=== PATIENT | female | born 1975 | race Caucasian/White ===

== ENCOUNTER 2017-10-31 09:34 | Inpatient (IN) | payer MEDICAID ==
[2017-10-31] MEDS: morphine 4 MG/ML VIAL IV ×3 (11:19→15:43)
[2017-10-31] MEDS: ONDANSETRON 4 MG INJ IV ×3 (11:19→22:26)
[2017-10-31 12:04] LABS: ADD MAN DIFF? NO
[2017-10-31 12:09] LABS: BASOPHIL # 0.1 10^3/ul (0.0-0.1); BASOPHILS % 0.4 % (0.0-2.0); EOSINOPHILS % 0.2 % (0.0-7.0); HEMATOCRIT 40.6 % (37.0-47.0); HEMOGLOBIN 13.6 g/dl (12.0-16.0); LYMPHOCYTES % 11.3 % (15.0-51.0); MEAN CORPUSCULAR HGB CONC 33.5 g/dl (32.0-37.0); MEAN CORPUSCULAR VOLUME 92.5 fl (82.0-101.0); MEAN PLATELET VOLUME 11.3 fl (7.4-10.4); MONOCYTE # 0.5 10^3/ul (0.3-0.9); MONOCYTES % 3.1 % (0.0-11.0); NEUTROPHIL # 14.8 10^3/ul (1.6-7.5); NEUTROPHILS % 84.5 % (39.0-77.0); PLATELET COUNT 247 10^3/UL (140-415); RED BLOOD COUNT 4.39 10^6/ul (4.20-5.40); RED CELL DISTRIBUTION WIDTH 12.9 % (11.5-14.5)
[2017-10-31 12:09] LABS: WHITE BLOOD COUNT 17.5 10^3/ul (4.8-10.8)
[2017-10-31 12:16] LABS: ADD UMIC NO; UR ASCORBIC ACID 40 mg/dL (NEGATIVE); UR BILIRUBIN (Dip) NEGATIVE (NEGATIVE); UR BLOOD (Dip) NEGATIVE (NEGATIVE); UR CLARITY CLEAR (CLEAR); UR COLOR YELLOW (YELLOW); UR GLUCOSE (Dip) NEGATIVE (NEGATIVE); UR KETONES (Dip) NEGATIVE (NEGATIVE); UR LEUKOCYTE ESTERASE (Dip) NEGATIVE Leu/ul (NEGATIVE); UR NITRITE (Dip) NEGATIVE (NEGATIVE); UR SPECIFIC GRAVITY (Dip) 1.024 (1.003-1.030); UR TOTAL PROTEIN (Dip) NEGATIVE (NEGATIVE); UR UROBILINOGEN (Dip) NEGATIVE (NEGATIVE)
[2017-10-31] MEDS: SOD CHLORIDE 0.9% 1,000 ML IV (12:34)
[2017-10-31] MEDS: PIPER-TAZO 3.375 GM IV (PMX) 100 ML IVPB ×2 (12:34→20:58)
[2017-10-31 12:35] LABS: ALANINE AMINOTRANSFERASE 80 IU/L (13-69); ALBUMIN 4.6 g/dl (3.3-4.9); ALBUMIN/GLOBULIN RATIO 1.21; ALKALINE PHOSPHATASE 98 IU/L (42-121); ANION GAP 17 (8-16); ASPARTATE AMINO TRANSFERASE 34 IU/L (15-46); BILIRUBIN,INDIRECT 0.3 mg/dl (0-1.1); BILIRUBIN,TOTAL 0.3 mg/dl (0.2-1.3); BLOOD UREA NITROGEN 14 mg/dl (7-20); CALCIUM 8.7 mg/dl (8.4-10.2); CARBON DIOXIDE 23 mmol/L (21-31); CHLORIDE 105 mmol/L (97-110); CREATININE 0.48 mg/dl (0.44-1.00); GLUCOSE 133 mg/dl (70-220); LIPASE 115 U/L (23-300); POTASSIUM 3.8 mmol/L (3.5-5.1); SODIUM 141 mmol/L (135-144); TOTAL PROTEIN 8.4 g/dl (6.1-8.1)
[2017-10-31] MEDS ORDERED: ONDANSETRON 4 MG INJ IV ×2 (14:00→20:30)
[2017-10-31] MEDS ORDERED: ACETAMINOPHEN 325 MG TAB PO ×2 (14:00→19:30)
[2017-10-31] MEDS ORDERED: NACL 0.9% 3 ML SYG IV (16:30)
[2017-10-31] MEDS ORDERED: morphine 2 MG INJ IV (16:30)
[2017-10-31] MEDS ORDERED: PIPER-TAZO 3.375 GM IV (PMX) 100 ML IVPB (18:00)
[2017-10-31] MEDS ORDERED: LIDOCAINE 1%/EPI 30 ML INJ (18:12)
[2017-10-31] MEDS ORDERED: MIDAZOLAM 1 MG/ML 2 ML INJ (19:11)
[2017-10-31] MEDS: KETOROLAC 15 MG INJ IV (19:30)
[2017-10-31] MEDS: BUPIVACAINE 0.25% (MPF) 30 ML INJ (19:36)
[2017-10-31] MEDS ORDERED: LIDOCAINE 2% (SDV) 5 ML INJ (19:49)
[2017-10-31] MEDS ORDERED: ROCURONIUM 50 MG INJ (19:49)
[2017-10-31] MEDS ORDERED: PROPOFOL 20 ML (19:49)
[2017-10-31] MEDS ORDERED: GLYCOPYRROLATE 0.4 MG INJ (19:49)
[2017-10-31] MEDS ORDERED: NEOSTIGMINE 3 MG/3 ML SYRINGE (19:49)
[2017-10-31] MEDS ORDERED: KETOROLAC 30 MG INJ (19:51)
[2017-10-31] MEDS ORDERED: ONDANSETRON 4 MG INJ (19:51)
[2017-10-31] MEDS ORDERED: FENTAnyl 50 MCG/ML VIAL IV (20:30)
[2017-10-31] MEDS ORDERED: HYDROmorphONE (0.2 MG/ML) 10ML SYG IV ×2 (20:30)
[2017-10-31] MEDS ORDERED: KETOROLAC 30 MG INJ IV (20:30)
[2017-10-31] MEDS ORDERED: MEPERIDINE 25 MG INJ IV (20:30)
[2017-10-31] MEDS ORDERED: DIPHENHYDRAMINE 50 MG INJ IV (20:30)
[2017-10-31] MEDS: D5-NS + KCL 20 MEQ 1,000 ML IV (22:27)
[2017-10-31] MEDS: morphine 2 MG INJ IV (22:27)
[2017-11-01] MEDS: PIPER-TAZO 3.375 GM IV (PMX) 100 ML IVPB ×4 (01:08→17:44)
[2017-11-01] MEDS: KETOROLAC 15 MG INJ IV ×4 (01:08→19:30)
[2017-11-01] MEDS: D5-NS + KCL 20 MEQ 1,000 ML IV ×2 (04:01→12:09)
[2017-11-01 06:04] LABS: ADD MAN DIFF? NO
[2017-11-01] MEDS: ENOXAPARIN 40 MG/0.4 ML SYG SC (06:22)
[2017-11-01 06:23] LABS: BASOPHILS % 0.1 % (0.0-2.0); EOSINOPHILS % 0.1 % (0.0-7.0); HEMATOCRIT 31.4 % (37.0-47.0); HEMOGLOBIN 10.7 g/dl (12.0-16.0); LYMPHOCYTES # 2.2 10^3/ul (0.8-2.9); LYMPHOCYTES % 14.9 % (15.0-51.0); MEAN CORPUSCULAR HEMOGLOBIN 31.6 pg (29.0-33.0); MEAN CORPUSCULAR HGB CONC 34.1 g/dl (32.0-37.0); MEAN CORPUSCULAR VOLUME 92.6 fl (82.0-101.0); MEAN PLATELET VOLUME 10.8 fl (7.4-10.4); MONOCYTES % 7.1 % (0.0-11.0); NEUTROPHIL # 11.1 10^3/ul (1.6-7.5); NEUTROPHILS % 77.4 % (39.0-77.0); PLATELET COUNT 223 10^3/UL (140-415); RED BLOOD COUNT 3.39 10^6/ul (4.20-5.40); RED CELL DISTRIBUTION WIDTH 13.1 % (11.5-14.5)
[2017-11-01 06:23] LABS: WHITE BLOOD COUNT 14.4 10^3/ul (4.8-10.8)
[2017-11-01 07:02] LABS: ALANINE AMINOTRANSFERASE 58 IU/L (13-69); ALBUMIN 3.3 g/dl (3.3-4.9); ALBUMIN/GLOBULIN RATIO 1.13; ALKALINE PHOSPHATASE 61 IU/L (42-121); ANION GAP 11 (8-16); ASPARTATE AMINO TRANSFERASE 23 IU/L (15-46); BILIRUBIN,INDIRECT 0.5 mg/dl (0-1.1); BILIRUBIN,TOTAL 0.5 mg/dl (0.2-1.3); BLOOD UREA NITROGEN 8 mg/dl (7-20); CALCIUM 7.7 mg/dl (8.4-10.2); CARBON DIOXIDE 27 mmol/L (21-31); CHLORIDE 106 mmol/L (97-110); CREATININE 0.54 mg/dl (0.44-1.00); GLUCOSE 135 mg/dl (70-220); POTASSIUM 3.6 mmol/L (3.5-5.1); SODIUM 140 mmol/L (135-144); TOTAL PROTEIN 6.2 g/dl (6.1-8.1)
[2017-11-01] MEDS: HYDROCODONE/APAP (5/325) TAB PO (20:03)
[2017-11-02] MEDS ORDERED: IBUPROFEN 600 MG TAB PO (14:00)
== END 2017-11-01 23:08 | disposition home or self-care (01) | DRG 343 ==
LOC: FTE 09:34 → MS2 13:46
PROC: 0DTJ4ZZ Resection of Appendix, Percutaneous Endoscopic Approach (ICD-10-PCS; principal; 2017-10-31 18:30)
DX: K35.80 Unspecified acute appendicitis (principal); E66.01 Morbid (severe) obesity due to excess calories; Z68.36 Body mass index [BMI] 36.0-36.9, adult
CPT/HCPCS: 74176; 80053; 81003; 81025; 83690; 85025; 88304; 96374; 96375; 96376; 99285-25